=== PATIENT | female | born 1945 ===

== ENCOUNTER 2024-01-06 12:39 | Outpatient (REF) | payer MEDICARE, SELFPAY ==
[2024-01-06 14:29] LABS: HCT 41.4 % (36.0-46.0); MCH 27.5 pg (27.0-33.0); MCHC 31.4 % (32.0-36.0); MCV 88 fL (80-95); MPV 11.7 fL (8.0-11.0); Platelet Count 256 10^3/uL (130-400); RBC 4.72 10^6/uL (3.93-5.22); RDW 14.1 % (11.7-14.6); RDW-SD 45.7 fL; WBC 5.88 10^3/uL (4.4-10.8)
[2024-01-06 14:49] LABS: ALT 31 U/L (14-59); AST 31 U/L (15-37); Albumin 3.9 g/dL (3.4-5.0); Alkaline Phosphatase 146 U/L (46-116); Anion Gap 7.6 mmol/L (3-11); BUN 12 mg/dL (7-18); Bilirubin, Total 0.4 mg/dL (0.2-1.0); CO2 31.4 mmol/L (21.0-32.0); CREATININE 1.2 mg/dL (0.55-1.02); Calcium 9.6 mg/dL (8.5-10.1); Chloride 103 mmol/L (98-107); Estimated GFR 45.76 (mL/min/1.73m2); GGT 81 U/L (5-55); Glucose 102 mg/dL (74-106); Potassium 4.1 mmol/L (3.5-5.1); Sodium 142 mmol/L (136-145); Total Protein 8.1 g/dL (6.4-8.2)
== END 2024-01-06 12:40 | disposition home or self-care (01) ==
LOC: NCHCN 12:39
PROVIDERS: Visit Provider Internal Medicine
DX: R74.8 Abnormal levels of other serum enzymes (principal)
CPT/HCPCS: 80053; 82306; 85027; 82977

== ENCOUNTER 2024-01-19 12:40 | Outpatient (REF) | payer MEDICARE, SELFPAY ==
[2024-01-19 15:52] LABS: Vitamin D 25 Total 40.1 ng/mL (30-100)
== END 2024-01-19 12:41 | disposition home or self-care (01) ==
LOC: NCHCN 12:40
PROVIDERS: Visit Provider Internal Medicine
DX: R74.8 Abnormal levels of other serum enzymes (principal)
CPT/HCPCS: 82306

== ENCOUNTER 2025-01-07 16:15 | Outpatient (REF) | payer MEDICARE, SELFPAY ==
[2025-01-07 15:31] LABS: Calculated LDL 63 mg/dL (<100); Cholesterol 142 mg/dL (<200); HDL Cholesterol 49 mg/dL (>or=50); Triglyceride 150 mg/dL (<150)
[2025-01-07 15:38] LABS: HCT 36.4 % (36.0-46.0); HGB 10.9 g/dL (11.2-15.7); MCH 24.7 pg (27.0-33.0); MCHC 29.9 % (32.0-36.0); MCV 82 fL (80-95); MPV 12.4 fL (8.0-11.0); Platelet Count 229 10^3/uL (130-400); RBC 4.42 10^6/uL (3.93-5.22); RDW 16.1 % (11.7-14.6); WBC 5.36 10^3/uL (4.4-10.8)
[2025-01-07 16:03] LABS: ALT 22 U/L (14-59); AST 31 U/L (15-37); Albumin 3.8 g/dL (3.4-5.0); Alkaline Phosphatase 129 U/L (46-116); Anion Gap 8.9 mmol/L (3-11); BUN 11 mg/dL (7-18); Bilirubin, Total 0.4 mg/dL (0.2-1.0); CO2 28.1 mmol/L (21.0-32.0); CREATININE 0.9 mg/dL (0.55-1.02); Calcium 9.4 mg/dL (8.5-10.1); Chloride 103 mmol/L (98-107); Estimated GFR 64.23 (mL/min/1.73m2); Glucose 101 mg/dL (74-106); Potassium 4.1 mmol/L (3.5-5.1); Sodium 140 mmol/L (136-145); Total Protein 7.9 g/dL (6.4-8.2)
[2025-01-08 10:17] LABS: Ferritin 11 ng/mL (8-252)
== END 2025-01-07 16:16 | disposition home or self-care (01) ==
LOC: NCHCN 16:15
PROVIDERS: PCP Internal Medicine; Visit Provider Internal Medicine
DX: E78.5 Hyperlipidemia, unspecified (principal); N18.31 Chronic kidney disease, stage 3a; D64.9 Anemia, unspecified; R74.8 Abnormal levels of other serum enzymes
CPT/HCPCS: 80053; 80061; 85027; 82728

== ENCOUNTER 2025-02-26 20:39 | Outpatient (REF) | payer MEDICARE, SELFPAY ==
[2025-02-26 20:57] LABS: HCT 40.0 % (36.0-46.0); HGB 12.4 g/dL (11.2-15.7); MCH 27.3 pg (27.0-33.0); MCHC 31.0 % (32.0-36.0); MCV 88 fL (80-95); MPV 11.3 fL (8.0-11.0); Platelet Count 273 10^3/uL (130-400); RBC 4.54 10^6/uL (3.93-5.22); RDW 19.1 % (11.7-14.6); RDW-SD 61.1 fL; WBC 8.40 10^3/uL (4.4-10.8)
[2025-02-26 21:02] LABS: Iron 61 ug/dL (50-170); Total Iron Binding Capacity 350 ug/dL (250-450); Transferrin Sat 17 % (15-50)
[2025-02-26 22:04] LABS: Ferritin 43 ng/mL (8-252)
== END 2025-02-26 20:40 | disposition home or self-care (01) ==
LOC: NCHCN 20:39
PROVIDERS: PCP Internal Medicine; Visit Provider Internal Medicine
DX: D64.9 Anemia, unspecified (principal)
CPT/HCPCS: 85027; 82728; 83540; 83550